=== PATIENT | female | born 1965 | race Caucasian/White ===

== ENCOUNTER 2021-07-05 19:45 | Emergency (ER) | payer OTHER ==
[~2021-07-05] VITALS: Ht 160 cm; Wt 67.0 kg
[2021-07-05 20:03] VITALS: BP 135/57
[2021-07-05] MEDS ORDERED: ACETAMINOPHEN 325MG TABLET PO STA (23:59)
[2021-07-05] MEDS ORDERED: MAGNESIUM/ALUMINUM HYDROXIDE/SIMETHICONE 30ML UDC PO STA (23:59)
[2021-07-06] MEDS ORDERED: FAMOTIDINE 20MG TABLET PO ONE
[2021-07-06 00:30] LABS: BASOPHILS % 0.4 % (0.0-2.0); HEMATOCRIT. 37.2 % (36.0-48.0); HEMOGLOBIN. 12.1 g/dL (12.0-16.0); LYMPHOCYTES % 43.5 % (20.0-50.0); MEAN CORPUSCULAR HEMOGLOBIN 26.5 pg (28.0-32.0); MEAN CORPUSCULAR VOLUME 81.2 fL (81.0-99.0); MEAN PLATELET VOLUME 8.9 fl (7.4-10.4); NEUTROPHILS % 47.1 % (40.0-76.0); PLATELET 326 x1000/uL (130-400); RED BLOOD CELL COUNT 4.58 mill/uL (4.2-5.4); RED CELL DISTRIBUTION WIDTH 14.2 % (11.6-14.6)
[2021-07-06 00:37] LABS: CHLORIDE 107 mEq/L (98-107)
[2021-07-06] MEDS ORDERED: NITR-87 MT (05:58)
[2021-07-06] MEDS ORDERED: IBUP-2028 MT (06:03)
== END 2021-07-06 00:05 | disposition left against medical advice (07) ==
LOC: ER 19:45
DX: R10.32 Left lower quadrant pain (principal)
CPT/HCPCS: 36415; 80053; 85025; 93005; 99281

== ENCOUNTER 2021-07-06 02:46 | Emergency (ER) | payer OTHER ==
[~2021-07-06] VITALS: Ht 160 cm; Wt 67.0 kg
[2021-07-06] MEDS ORDERED: KETOROLAC 30MG/ML VIAL IV STA (03:05)
[2021-07-06] MEDS ORDERED: SODIUM CHLORIDE 0.9% 1,000 ML IV ONE (03:15)
[2021-07-06 03:27] LABS: CLARITY URINE CLOUDY (CLEAR); COLOR URINE YELLOW (YELLOW); KETONES URINE NEGATIVE (NEGATIVE); LEUKOCYTE ESTERASE URINE NEGATIVE (NEGATIVE); NITRITE URINE NEGATIVE (NEGATIVE); OCCULT BLOOD URINE TRACE (NEGATIVE); PH URINE 7.5 (4.5-8.0); PROTEIN URINE NEGATIVE (NEGATIVE); SPECIFIC GRAVITY URINE 1.011 (1.005-1.030); UROBILINOGEN URINE 0.2 E.U./dL (0.2-1.0)
[2021-07-06 03:51] VITALS: BP 114/57
[2021-07-06] MEDS ORDERED: NITR-87 MT (05:58)
[2021-07-06] MEDS ORDERED: IBUP-2028 MT (06:03)
== END 2021-07-06 06:06 | disposition home or self-care (01) ==
LOC: ER 03:25
DX: N39.0 Urinary tract infection, site not specified (principal); Z98.51 Tubal ligation status
CPT/HCPCS: 71045; 74176; 81003; 93005; 96361; 96374; 99285; J1885; J7030